=== PATIENT | male | born 1970 | race Caucasian/White ===

== ENCOUNTER 2020-11-03 09:12 | Observation (INO) ==
[2020-11-03] MEDS ORDERED: HYDROmorphone 2 MG/1 ML VIAL IV STA (10:00)
[2020-11-03] MEDS ORDERED: SODIUM CHLORIDE 0.9% 1,000 ML IV STA (10:00)
[2020-11-03] MEDS ORDERED: ONDANSETRON 4 MG/2 ML VIAL IV STA (10:00)
[2020-11-03] MEDS ORDERED: KETOROLAC 30 MG/1 ML VIAL IV STA (10:00)
[2020-11-03 10:14] LABS: Bilirubin,Urine Negative (Negative); Blood, Urine Large mg/dL (Negative); Calcium Oxalate Crystals,Urine Many /HPF (Few); Glucose,Urine (UA) Negative (Negative); Ketones,Urine Negative (Negative); Mucus,Urine Many /LPF (Occasional); Nitrite,Urine Negative (Negative); Protein,Urine 100 MG/DL; RBC,Urine 139 /HPF (0-4); Urine Appearance Slightly Hazy (Clear); Urine Color Amber (Yellow); Urine Specific Gravity 1.029 (1.001-1.035); Urine Urobilinogen < 2.0 EU/DL (0.2-1.0)
[2020-11-03 12:16] LABS: Basophils # 0.1 10*3/uL (0.0-0.2); Basophils % 0.4 % (0.0-0.8); Eosinophils # 0.1 10*3/uL (0.0-0.87); Eosinophils % 0.4 % (0.00-10.9); Hematocrit 43.2 VOL% (42.0-52.0); Hemoglobin 14.5 GM/DL (14.0-18.0); Immature Granulocytes % 0.7 %; Immature Granulocytes Absolute 0.17 #; Mean Corpuscular HGB Conc 33.6 GM/DL (32-36); Mean Corpuscular Volume 92.9 FL (87-102); Mean Platelet Volume 9.3 FL (9.6-12.0); Monocytes % 4.5 % (1.7-12.7); Platelet Count 273 T/CUMM (130-400); Red Blood Count 4.65 MC/CUMM (3.8-5.5); Red Cell Distribution Width 13.3 % (9.3-17.3); White Blood Count 24.9 T/CUMM (4-12)
[2020-11-03 12:35] LABS: Albumin 3.7 G/DL (3.4-5.0); Bilirubin,Total 0.4 MG/DL (0.2-1.0); Calcium 8.7 MG/DL (8.5-10.1); Osmolality,Calculated 274.8 MOS/KG (273-304); Potassium 4.1 MMOL/L (3.5-5.1); Total Protein 7.2 G/DL (6.4-8.2)
[2020-11-03 13:18] LABS: Lymphocytes 9 % (20-55); Segmented Neutrophils 90 % (50-85); Total Cells Counted 100
[2020-11-03 13:19] LABS: Platelet Estimate Normal; Stomatocytes Few
[2020-11-03] MEDS ORDERED: ONDANSETRON 4 MG/2 ML VIAL ONE (13:30)
[2020-11-03] MEDS ORDERED: MIDAZOLAM 2 MG/2 ML VIAL ONE (13:30)
[2020-11-03] MEDS ORDERED: LIDOCAINE 2% 5 ML VIAL ONE (13:30)
[2020-11-03] MEDS ORDERED: SEVOFLURANE 1 UNIT/15 MINUTE INH ONE (13:30)
[2020-11-03] MEDS ORDERED: propofoL 200 MG/20 ML VIAL IV ONE (13:30)
[2020-11-03] MEDS ORDERED: fentaNYL 100 MCG/2 ML VIAL ONE (13:30)
[2020-11-03] MEDS ORDERED: LACTATED RINGERS 1,000 ML IV SCH (14:00)
[2020-11-03] MEDS ORDERED: ePHEDrine 50 MG/ML VIAL ONE (14:10)
[2020-11-03] MEDS ORDERED: ceFAZolin 1,000 MG VIAL ONE (14:17)
[2020-11-03] MEDS ORDERED: PROMETHAZINE 25 MG/1 ML VIAL IM PRN (14:32)
[2020-11-03] MEDS ORDERED: ONDANSETRON 4 MG/2 ML VIAL IV PRN (14:32)
[2020-11-03] MEDS ORDERED: KETOROLAC 30 MG/1 ML VIAL IV PRN (14:36)
[2020-11-03] MEDS ORDERED: oxyCODONE/ACETAMINOPHEN 5-325 MG TABLET PO PRN (14:36)
[2020-11-03] MEDS ORDERED: HYDROmorphone 2 MG/1 ML VIAL IV PRN (14:38)
[2020-11-03 14:49] LABS: Bilirubin,Urine Negative (Negative); Blood, Urine Large mg/dL (Negative); Glucose,Urine (UA) Negative (Negative); Hyaline Casts,Urine 1 /LPF (0-3); Ketones,Urine Negative (Negative); Mucus,Urine Occasional /LPF (Occasional); Nitrite,Urine Negative (Negative); Protein,Urine Negative; RBC,Urine 138 /HPF (0-4); Squamous Epithelial Cell,Urine Occasional /HPF (0-10); Urine Appearance CLEAR (Clear); Urine Color Straw (Yellow); Urine Specific Gravity 1.005 (1.001-1.035); Urine Urobilinogen < 2.0 EU/DL (0.2-1.0)
[2020-11-03] MEDS: SODIUM CHLORIDE 0.9% 1,000 ML IV SCH ×2 (15:50→21:30)
[2020-11-03] MEDS: cefTRIAXone 1,000 MG in SODIUM CHLORIDE 0.9% 100 ML IV SCH (15:50)
[2020-11-03] MEDS: ACETAMINOPHEN 325 MG TABLET PO SCH ×2 (15:50→20:30)
[2020-11-03] MEDS ORDERED: lisinopriL 20 MG TABLET PO SCH (21:00)
[2020-11-03] MEDS ORDERED: TAMSULOSIN 0.4 MG CAPSULE PO SCH (21:00)
[2020-11-04] MEDS: ACETAMINOPHEN 325 MG TABLET PO SCH ×2 (04:35→09:04)
[2020-11-04] MEDS: SODIUM CHLORIDE 0.9% 1,000 ML IV SCH ×2 (05:15→12:36)
[2020-11-04 06:01] LABS: Basophils # 0.1 10*3/uL (0.0-0.2); Basophils % 0.5 % (0.0-0.8); Eosinophils # 0.3 10*3/uL (0.0-0.87); Eosinophils % 2.5 % (0.00-10.9); Hematocrit 36.8 VOL% (42.0-52.0); Immature Granulocytes % 0.4 %; Immature Granulocytes Absolute 0.05 #; Lymphocytes # 2.6 10*3/uL (1.4-4.0); Lymphocytes % 23.5 % (21.2-54.2); Mean Corpuscular HGB Conc 33.4 GM/DL (32-36); Mean Corpuscular Volume 93.9 FL (87-102); Mean Platelet Volume 9.7 FL (9.6-12.0); Monocytes % 6.4 % (1.7-12.7); Neutrophils % 66.7 % (38.7-73.9); Platelet Count 226 T/CUMM (130-400); Red Blood Count 3.92 MC/CUMM (3.8-5.5); Red Cell Distribution Width 13.6 % (9.3-17.3)
[2020-11-04 06:12] LABS: Osmolality,Calculated 277.4 MOS/KG (273-304); Potassium 4.2 MMOL/L (3.5-5.1)
[2020-11-04 06:15] LABS: Hemoglobin 12.3 GM/DL (14.0-18.0); White Blood Count 11.2 T/CUMM (4-12)
[2020-11-04] MEDS: cefTRIAXone 1,000 MG in SODIUM CHLORIDE 0.9% 100 ML IV SCH (09:02)
[2020-11-04 11:27] VITALS: BP 121/70
== END 2020-11-04 12:50 | disposition home or self-care (01) ==
LOC: N.EDINP 09:12 → N.ED 09:12 → N.5E 13:57
PROVIDERS: ADMIT Surgery; ATTEND Surgery